=== PATIENT | female | born 1955 | race Caucasian/White ===

== ENCOUNTER 2018-04-25 05:55 | Day surgery (SDC) | payer BC ==
[~2018-04-25] VITALS: Ht 160 cm; Wt 68.0 kg
[2018-04-25] VITALS (8 sets, daily range): BP systolic 92–121; BP diastolic 52–62
[~2018-04-25 05:55] MED LIST: CITRACAL PO; COLA100C5 PO; CYCL5TAB PO; IBUP-1022 PO; LYRI75CA PO; MAG PO; MECL-86 PO; MIRA3350 PO; MULT1TAB10 PO; OSTETAB2 PO; TURMCAP PO; VITA500055 PO
[2018-04-25] MEDS ORDERED: LR 1,000 ML IV SCH ×2 (06:15→09:30)
[2018-04-25 06:23] LABS: HEMATOCRIT 41.7 % (36.0-47.0); HEMOGLOBIN 13.8 g/dl (12.0-15.5); MEAN CORPUSCULAR HEMOGLOBIN 31.9 pg (27.0-33.0); MEAN CORPUSCULAR HGB CONC 33.1 g/dl (32.0-36.5); MEAN CORPUSCULAR VOLUME 96.3 fl (80.0-96.0); PLATELET COUNT, AUTOMATED 247 10^3/uL (150-450); RED BLOOD COUNT 4.33 10^6/uL (4.00-5.40); WHITE BLOOD COUNT 5.3 10^3/uL (4.0-10.0)
[2018-04-25] MEDS ORDERED: BUPIVACAINE/EPIN 0.25% 30 ML VIAL As Ordered ONE (06:45)
[2018-04-25] MEDS ORDERED: LIDOCAINE 2% INJ 100 MG/5 ML SDV (FOR ANES.) As Ordered ONE (07:17)
[2018-04-25] MEDS ORDERED: PROPOFOL 200 MG/20 ML VIAL As Ordered ONE (07:17)
[2018-04-25] MEDS ORDERED: fentaNYL 250 MCG/5 ML INJECTION (J3010) As Ordered ONE (07:17)
[2018-04-25] MEDS ORDERED: ROCURONIUM BROMIDE 50 MG/5 ML VIAL As Ordered ONE (07:17)
[2018-04-25] MEDS ORDERED: MIDAZOLAM INJ 2 MG/2 ML VIAL (J2250) As Ordered ONE (07:18)
[2018-04-25] MEDS ORDERED: ePHEDrine SULFATE 25 MG/5 ML(5MG/ML) SYRINGE As Ordered ONE (08:04)
[2018-04-25] MEDS ORDERED: ONDANSETRON 4MG/2ML VIAL (J2405) As Ordered ONE (08:05)
[2018-04-25] MEDS ORDERED: dexameTHASONE 4 MG/ML 1ML VIAL (J1100) As Ordered ONE (08:05)
[2018-04-25] MEDS ORDERED: KETOROLAC 60 MG/2 ML VIAL (J1885) As Ordered ONE (08:05)
[2018-04-25] MEDS ORDERED: METOCLOPRAMIDE INJ 10MG/2ML VIAL (J2765) As Ordered ONE (08:05)
[2018-04-25] MEDS ORDERED: GLYCOPYRROLATE INJ 0.2 MG/ML 2 ML VIAL As Ordered ONE (08:52)
[2018-04-25] MEDS ORDERED: NEOSTIGMINE 10 MG/10 ML VIAL (J2710) As Ordered ONE (08:52)
[2018-04-25] MEDS ORDERED: ONDANSETRON 4MG/2ML VIAL (J2405) IV PRN ×2 (09:30)
[2018-04-25] MEDS ORDERED: MORPHINE 4 MG/ML 1ML VIAL/SYRINGE (J2270) IV PRN (09:30)
[2018-04-25] MEDS: NORCO, ANEXSIA 5/325MG TABLET (HYDROcodone/ACETAMINOPHEN) PO PRN ×2 (09:35→10:05)
[2018-04-25] MEDS: fentaNYL 100 MCG/2 ML INJECTION (J3010) IV PRN ×8 (09:35→10:30)
[2018-04-25] MEDS ORDERED: fentaNYL 100 MCG/2 ML INJECTION (J3010) As Ordered ONE (10:13)
[2018-04-25] MEDS: PERCOCET 5MG/325MG TAB PO PRN ×3 (11:30→21:30)
[2018-04-25] MEDS: LR 1,000 ML IV SCH ×2 (12:00→18:07)
[2018-04-25] MEDS: DOCUSATE SODIUM 100 MG CAP PO SCH ×2 (12:57→21:30)
[2018-04-25] MEDS: KETOROLAC 30 MG/ML VIAL (J1885) IV PRN (15:35)
[2018-04-25] MEDS ORDERED: CYCLOBENZAPRINE 5MG TABLET PO SCH (17:00)
[2018-04-25] MEDS ORDERED: DULO1CAP PO (18:04)
[2018-04-25] MEDS ORDERED: CYCLOBENZAPRINE 5MG TABLET PO PRN (18:15)
--- NOTE | 2018-04-25 18:35 | RO ---
DATE OF PROCEDURE: 04/25/2018 PREPROCEDURE DIAGNOSIS: Cystocele, rectocele, symptomatic pelvic prolapse. POSTPROCEDURE DIAGNOSIS: Cystocele, rectocele, symptomatic pelvic prolapse. PROCEDURE: Anterior and posterior vaginal repair, cystoscopy. SURGEON: Dr. Clint Samaniego BELT CUTTER: Dr. Poncho Sanders ANESTHESIA: General endotracheal. ESTIMATED BLOOD LOSS: 100 mL. URINE OUTPUT: 50 mL. FLUIDS: 1500 mL Lactated Ringer's (LR). 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 DESCRIPTION OF PROCEDURE: The patient was taken to the operating room where general endotracheal anesthesia was induced. She was prepped and draped in a sterile fashion in the dorsal lithotomy position. The bladder was grasped bilaterally with Allis clamps. The area was injected with dilute Marcaine solution with epinephrine to create a plane. It was noted at that time that there was fusion of the anterior and posterior vagina near the apex which mimicked vaginal vault prolapse. This was taken down sharply with Metzenbaum scissors to restore normal vaginal length. Incision was created in the vaginal mucosa overlying the bladder in the midline. Metzenbaum scissors were used to dissect the plane between the bladder and the vagina. The bladder was taken off the vagina with a combination of blunt and sharp dissection. Two plicating sutures of #2-0 Vicryl were placed on either side of the bladder, which when secured into place elevated the bladder. The excess vaginal mucosa was excised. Remainder of the vagina was closed with #2-0 Vicryl in a running fashion. The Allis clamps were then used to grasp posteriorly the vagina area of the hymenal remnants bilaterally. Incision was created in the vagina in the midline. Metzenbaum scissors were used to dissect the rectum off the vagina. The remainder of the rectum was dissected off with a combination of blunt and sharp dissection. Rectal exam confirmed no injury to the rectum. Excess vagina was excised. A plicating suture of #2-0 Vicryl was placed bilaterally to help restore positioning of the rectum. The vagina was then closed with #2-0 Vicryl in a running fashion. The apex support was excellent after removing adhesions of the anterior and posterior vagina. There was no need for any colposuspension procedure. Cystoscopy was performed using a 70-degree cystoscope. There was no evidence of injury to the bladder bilaterally. Ureteral jets were identified. All instruments were removed. Sponge, instrument, and needle counts were correct. Poncho Sanders DO, assisted with all aspects of the procedure from beginning to end. He assisted with the dissection of both the bladder and rectum and helped restore support from both structures.
[2018-04-26] VITALS: BP 108/55
[2018-04-26] MEDS: KETOROLAC 30 MG/ML VIAL (J1885) IV PRN (00:06)
[2018-04-26] MEDS: PERCOCET 5MG/325MG TAB PO PRN ×2 (03:46→08:16)
[2018-04-26 04:00] VITALS: BP 104/50
[2018-04-26 07:32] VITALS: BP 110/59
[2018-04-26] MEDS ORDERED: OXYC1TAB23 PO (07:49)
[2018-04-26] MEDS: DOCUSATE SODIUM 100 MG CAP PO SCH (08:15)
[2018-04-26] MEDS ORDERED: PREGABALIN 75 MG CAP(LYRICA) PO SCH (09:00)
[2018-04-26] MEDS ORDERED: DULoxetine 20 MG CAP (CYMBALTA) PO SCH (09:00)
== END 2018-04-26 10:40 | disposition home or self-care (01) ==
LOC: M SDC 05:55 → M PED 11:45 → M SDC 04-26 10:40
PROVIDERS: ATTEND Specialist
DX: N81.10 Cystocele, unspecified (principal); N81.6 Rectocele; I44.0 Atrioventricular block, first degree; I51.7 Cardiomegaly; J47.9 Bronchiectasis, uncomplicated; K59.00 Constipation, unspecified; N30.10 Interstitial cystitis (chronic) without hematuria; F32.9 Major depressive disorder, single episode, unspecified; E78.5 Hyperlipidemia, unspecified; M51.36 Other intervertebral disc degeneration, lumbar region; M48.061 Spinal stenosis, lumbar region without neurogenic claudication; I34.1 Nonrheumatic mitral (valve) prolapse; M85.80 Other specified disorders of bone density and structure, unspecified site; I83.90 Asymptomatic varicose veins of unspecified lower extremity; N95.2 Postmenopausal atrophic vaginitis; I73.9 Peripheral vascular disease, unspecified; E55.9 Vitamin D deficiency, unspecified; T88.59XD Other complications of anesthesia, subsequent encounter; K44.9 Diaphragmatic hernia without obstruction or gangrene; M15.0 Primary generalized (osteo)arthritis; M54.9 Dorsalgia, unspecified; G50.0 Trigeminal neuralgia; Z88.2 Allergy status to sulfonamides; Z88.8 Allergy status to other drugs, medicaments and biological substances; Z79.899 Other long term (current) drug therapy; Z90.710 Acquired absence of both cervix and uterus
CPT/HCPCS: 36415; 57260; 85027; 88302; 96374; 96375; J0690; J1100; J1885; J2250; J2270; J2405; J2710; J2765; J3010

== ENCOUNTER 2019-05-09 09:18 | Day surgery (SDC) | payer MEDICARE ==
[~2019-05-09] VITALS: Ht 160 cm; Wt 55.8 kg
[~2019-05-09 09:18] MED LIST changes: +DULO1CAP4 PO; +NS 1,000 ML IV ONE; +OXYC1TAB23 PO; +SUCR1ORA PO; +VANC250C3 PO
[2019-05-09] MEDS ORDERED: propofoL 200 MG/20 ML VIAL As Ordered ONE (09:39)
[2019-05-09] MEDS ORDERED: LIDOCAINE 2% INJ 100 MG/5 ML SDV (FOR ANES.) As Ordered ONE (09:39)
[2019-05-09] MEDS ORDERED: fentaNYL 100 MCG/2 ML INJECTION (J3010) As Ordered ONE (10:34)
--- NOTE | 2019-05-09 11:01 | ROOR ---
Patient Name: Brooklyn Rabago Procedure Date: 05/09/2019 10:43 AM Date of : 1955 Age: 63 Room: [facility] Gender: Female Note Status: Finalized Procedure: Upper Endoscopy + Biopsies Indications: Epigastric abdominal pain, Nausea with vomiting Providers: Mani Easton MD Referring MD: Anita HAYES MD Requesting Provider: Medicines: Monitored Anesthesia Care Complications: No immediate complications. Procedure: Pre-Anesthesia Assessment: - The heart rate, respiratory rate, oxygen saturations, blood pressure, adequacy of pulmonary ventilation, and response to care were monitored throughout the procedure. The Endoscope was introduced through the mouth, and advanced to the second part of duodenum. The upper GI endoscopy was accomplished without difficulty. The patient tolerated the procedure well. Findings: The Z-line was irregular and was found 40 cm from the incisors. Diffuse mildly erythematous mucosa without bleeding was found in the gastric body. Biopsies were taken with a cold forceps for Helicobacter pylori testing. The exam was otherwise without abnormality. Impression: - Z-line irregular, 40 cm from the incisors. - Erythematous mucosa in the gastric body. Biopsied. - The examination was otherwise normal. Recommendation: - Patient has a contact number available for emergencies. The signs and symptoms of potential delayed complications were discussed with the patient. Return to normal activities tomorrow. Written discharge instructions were provided to the patient. - High fiber diet. - Discharge patient to home. - Continue present medications. - Follow an antireflux regimen. - Await pathology results. - Telephone GI clinic for pathology results in 1 week. - Return to referring physician. - The findings and recommendations were discussed with the patient's family. Mani Easton MD Mani Easton MD 05/09/2019 11:01:20 AM Electronically signed by Mani Easton MD Number of Addenda: 0 Note Initiated On: 05/09/2019 10:43 AM Estimated Blood Loss: Estimated blood loss: none.
--- NOTE | 2019-05-09 11:25 | ROOR ---
Patient Name: Brooklyn Rabago Procedure Date: 05/09/2019 10:44 AM Date of : 1955 Age: 63 Room: [facility] Gender: Female Note Status: Finalized Procedure: Total Colonoscopy to Cecum + ileoscopy + Bx Indications: Epigastric abdominal pain, Clinically significant diarrhea of unexplained origin Providers: Mani Easton MD Referring MD: Anita HAYES MD Requesting Provider: Medicines: Monitored Anesthesia Care Complications: No immediate complications. Procedure: Pre-Anesthesia Assessment: - The heart rate, respiratory rate, oxygen saturations, blood pressure, adequacy of pulmonary ventilation, and response to care were monitored throughout the procedure. The Colonoscope was introduced through the anus and advanced to the terminal ileum, with identification of the appendiceal orifice and IC valve. The colonoscopy was performed without difficulty. The patient tolerated the procedure well. The quality of the bowel preparation was excellent. Findings: The perianal and digital rectal examinations were normal. Non-bleeding internal hemorrhoids were found during retroflexion. The hemorrhoids were small and Grade I (internal hemorrhoids that do not prolapse). Multiple small and large-mouthed diverticula were found in the recto-sigmoid colon, sigmoid colon and descending colon. The terminal ileum appeared normal. Biopsies for histology were taken with a cold forceps from the cecum, ascending colon, transverse colon and descending colon for evaluation of microscopic colitis. The exam was otherwise without abnormality. Impression: - Non-bleeding internal hemorrhoids. - Diverticulosis in the recto-sigmoid colon, in the sigmoid colon and in the descending colon. - The examined portion of the ileum was normal. - The examination was otherwise normal. - Biopsies were taken with a cold forceps from the cecum, ascending colon, transverse colon and descending colon for evaluation of microscopic colitis. - The exam was otherwise normal to the cecum. Recommendation: - Patient has a contact number available for emergencies. The signs and symptoms of potential delayed complications were discussed with the patient. Return to normal activities tomorrow. Written discharge instructions were provided to the patient. - High fiber diet. - Discharge patient to home. - Continue present medications. - Await pathology results. - Telephone GI clinic for pathology results in 1 week. - Return to referring physician. - The findings and recommendations were discussed with the patient's family. Mani Easton MD Mani Easton MD 05/09/2019 11:24:49 AM Electronically signed by Mani Easton MD Number of Addenda: 0 Note Initiated On: 05/09/2019 10:44 AM Estimated Blood Loss: Estimated blood loss: none.
[2019-05-09 12:40] VITALS: BP 120/69
== END 2019-05-09 13:01 | disposition home or self-care (01) ==
LOC: M OPP 09:18
PROVIDERS: ATTEND Internal Medicine Gastroenterology
DX: K64.0 First degree hemorrhoids (principal); K57.30 Diverticulosis of large intestine without perforation or abscess without bleeding; R10.13 Epigastric pain; R19.7 Diarrhea, unspecified; K22.8 Other specified diseases of esophagus; K31.89 Other diseases of stomach and duodenum; K52.831 Collagenous colitis; R11.2 Nausea with vomiting, unspecified; I05.9 Rheumatic mitral valve disease, unspecified; Z88.1 Allergy status to other antibiotic agents; Z88.2 Allergy status to sulfonamides; Z88.8 Allergy status to other drugs, medicaments and biological substances
CPT/HCPCS: 43239; 45380; 88305; J3010

== ENCOUNTER → 2023-02-25 | Outpatient (CLI) | payer MEDICARE ==
[~2023-02-25] MED LIST changes: -NS 1,000 ML IV ONE
== END ==
LOC: M PLAIMG 09:43
PROVIDERS: ATTEND Otolaryngology
DX: J32.9 Chronic sinusitis, unspecified (principal)

== ENCOUNTER 2023-04-19 18:20 | Emergency (ER) | payer MEDICARE ==
[~2023-04-19] VITALS: Ht 160 cm; Wt 52.9 kg
[2023-04-19] MEDS ORDERED: MECL-86 PO (19:20)
[2023-04-19] MEDS ORDERED: ATOR1TAB19 PO (19:20)
[2023-04-19] MEDS ORDERED: MYRB25TA PO (19:20)
[2023-04-19] MEDS ORDERED: ELIQ5TAB PO (19:20)
[2023-04-19] MEDS ORDERED: DOXE10CA PO (19:20)
[2023-04-19] MEDS ORDERED: FLON1SPR NARES (19:20)
[2023-04-19 21:12] LABS: BASO % 0.4 % (0.0-1.0); EOS # 0.2 10^3/uL (0.0-0.5); EOS % 2.5 % (0.0-3.0); HEMATOCRIT 50.1 % (36.0-47.0); HEMOGLOBIN 16.2 g/dl (12.0-15.5); LYMPH # 2.6 10^3/uL (1.5-5.0); LYMPH % 34.8 % (24.0-44.0); MEAN CORPUSCULAR HEMOGLOBIN 31.5 pg (27.0-33.0); MEAN CORPUSCULAR HGB CONC 32.3 g/dl (32.0-36.5); MEAN CORPUSCULAR VOLUME 97.5 fl (80.0-96.0); MONO # 0.5 10^3/uL (0.0-0.8); MONO % 6.4 % (2.0-8.0); NEUTROPHILS # 4.2 10^3/uL (1.5-8.5); NEUTROPHILS % 55.8 % (36.0-66.0); PLATELET COUNT, AUTOMATED 258 10^3/uL (150-450); RED BLOOD COUNT 5.14 10^6/uL (4.00-5.40); WHITE BLOOD COUNT 7.5 10^3/uL (4.0-10.0)
[2023-04-19 21:35] LABS: AMPHETAMINES LEVEL URINE NEGATIVE (NEGATIVE); BARBITURATES URINE NEGATIVE (NEGATIVE); BENZODIAZEPINES URINE NEGATIVE (NEGATIVE); CANNABINOIDS URINE NEGATIVE (NEGATIVE); COCAINE METABOLITE URINE NEGATIVE (NEGATIVE); METHADONE URINE NEGATIVE (NEGATIVE); OPIATES URINE NEGATIVE (NEGATIVE); PHENCYCLIDINE URINE NEGATIVE (NEGATIVE)
[2023-04-19 21:49] LABS: ETHYL ALCOHOL (ETHANOL) 0.005 % (0.000-0.010)
[2023-04-19 21:51] LABS: ALBUMIN 3.8 G/DL (3.2-5.2); ALKALINE PHOSPHATASE 81 U/L (46-116); ALT/SGPT 28 U/L (7.0-40); AST/SGOT 26 U/L (<34); BILIRUBIN,DIRECT 0.1 MG/DL (<0.4); BILIRUBIN,TOTAL 0.4 MG/DL (0.3-1.2); BLOOD UREA NITROGEN 16 MG/DL (9-23); CALCIUM LEVEL 9.6 MG/DL (8.3-10.6); CARBON DIOXIDE LEVEL 27 MMOL/L (20-31); CHLORIDE LEVEL 111 MMOL/L (98-107); CREATININE FOR GFR 0.88 MG/DL (0.55-1.30); GLOMERULAR FILTRATION RATE > 60.0 (>45); GLUCOSE, FASTING 159 MG/DL (74-106); POTASSIUM SERUM 3.9 MMOL/L (3.5-5.1); SALICYLATE LEVEL < 3.0 MG/DL (<30); SODIUM LEVEL 144 MMOL/L (136-145); TOTAL PROTEIN 6.5 G/DL (5.7-8.2)
[2023-04-19 21:54] LABS: THYROID STIMULATING HORMONE 2.616 uIU/ML (0.55-4.78)
[2023-04-19] MEDS ORDERED: HOME MED LIST COMPLETE! XX SCH (23:40)
[2023-04-20] MEDS ORDERED: FLUTICASONE PROP 0.05% NASAL SPRAY 16 GM (FLONASE) NARES SCH (09:00)
[2023-04-20] MEDS ORDERED: ATORVASTATIN 20 MG TAB PO SCH (09:00)
[2023-04-20] MEDS ORDERED: APIXABAN 5 MG TAB (ELIQUIS) PO SCH (09:00)
[2023-04-20] MEDS ORDERED: QUEtiapine FUMARATE 25 MG TAB PO ONE (10:45)
[2023-04-20 11:36] VITALS: BP 110/71; TEMP 98.1; O2SAT 98
[2023-04-20] MEDS ORDERED: DOXEPIN 25 MG CAP PO SCH (21:00)
== END 2023-04-20 11:40 | disposition home or self-care (01) ==
LOC: M ED 18:20
DX: F43.0 Acute stress reaction (principal); I49.1 Atrial premature depolarization; R45.851 Suicidal ideations; F10.10 Alcohol abuse, uncomplicated; Z88.2 Allergy status to sulfonamides; Z88.6 Allergy status to analgesic agent; Z88.8 Allergy status to other drugs, medicaments and biological substances; Z79.01 Long term (current) use of anticoagulants; Z79.02 Long term (current) use of antithrombotics/antiplatelets; Z79.899 Other long term (current) drug therapy